=== PATIENT | female | born 1960 | race Caucasian/White ===

== ENCOUNTER → 2017-03-23 | Outpatient (CLI) | payer OTHER | LOC: FIMAGING 08:50 | PROVIDERS: ATTEND Family Medicine | DX: Z13.820 Encounter for screening for osteoporosis (principal); M81.0 Age-related osteoporosis without current pathological fracture; E04.1 Nontoxic single thyroid nodule; R22.1 Localized swelling, mass and lump, neck ==

== ENCOUNTER → 2017-03-27 | Outpatient (CLI) | payer OTHER | LOC: FIMAGING 08:47 | PROVIDERS: ATTEND Family Medicine | DX: Z12.31 Encounter for screening mammogram for malignant neoplasm of breast (principal); E04.1 Nontoxic single thyroid nodule; I82.C11 Acute embolism and thrombosis of right internal jugular vein | CPT/HCPCS: G0202 ==

== ENCOUNTER → 2017-06-07 | Outpatient (CLI) | payer OTHER | LOC: FIMAGING 12:00 | PROVIDERS: ATTEND Surgery | DX: E04.1 Nontoxic single thyroid nodule (principal); R59.0 Localized enlarged lymph nodes; I82.C11 Acute embolism and thrombosis of right internal jugular vein ==

== ENCOUNTER → 2017-07-08 | Outpatient (CLI) | payer OTHER ==
[~2017-07-08] MED LIST: LIDOCAINE 1% 300 MG/30 ML SDV ONE
--- NOTE | 2017-07-08 11:03 | PDRADPN ---
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
== END ==
LOC: FIMAGING 10:07
PROVIDERS: ATTEND Surgery
PROC: 07B23ZX Excision of Left Neck Lymphatic, Percutaneous Approach, Diagnostic (ICD-10-PCS; principal; 2017-07-08)
DX: C77.0 Secondary and unspecified malignant neoplasm of lymph nodes of head, face and neck (principal)

== ENCOUNTER → 2017-07-11 | Outpatient (CLI) | payer OTHER | LOC: FIMAGING 14:40 → EDSTATUS 14:40 | PROVIDERS: ATTEND Surgery | DX: R91.8 Other nonspecific abnormal finding of lung field (principal); J98.59 Other diseases of mediastinum, not elsewhere classified ==

== ENCOUNTER → 2017-08-07 | Outpatient (CLI) | payer OTHER ==
[~2017-08-07] MED LIST changes: +IOPAMIDOL (ISOVUE-300) 100 ML BTL ONE; -LIDOCAINE 1% 300 MG/30 ML SDV ONE
== END ==
LOC: FIMAGING 09:07
PROVIDERS: ATTEND Otolaryngology
DX: C73 Malignant neoplasm of thyroid gland (principal)
CPT/HCPCS: Q9967

== ENCOUNTER → 2018-07-28 | Outpatient (CLI) | payer OTHER | LOC: FIMAGING 12:07 | PROVIDERS: ATTEND Family Medicine | DX: Z12.31 Encounter for screening mammogram for malignant neoplasm of breast (principal) ==